=== PATIENT | female | born 1980 | race Caucasian/White ===

== ENCOUNTER 2017-07-28 00:56 | Emergency (ER) | payer SELFPAY ==
[~2017-07-28] VITALS: Ht 165.1 cm; Wt 65.0 kg
[2017-07-28 00:58] VITALS: BP 120/72; PULSE 67; RESP 18; TEMP 98.9; O2SAT 100
[2017-07-28 01:42] VITALS: PULSE 61; RESP 16; O2SAT 100
[2017-07-28] MEDS ORDERED: ZOLO25TA PO (01:42)
[2017-07-28] MEDS ORDERED: LORazepam 1 MG TAB PO ONE (02:15)
--- NOTE | 2017-07-28 03:42 | PD ---
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 She was started Zoloft for the same did not work. She was at another hospital with a worked her up for cardiac EKGs [facility] Past Medical History Anxiety: Yes Diminished Hearing: No Tetanus Vaccination: > 5 Years Influenza Vaccination: No ?: Unknown : 4 Para: 3 Miscarriage: 1 Past Surgical History Surgical History: No Previous Surgery Social History Alcohol Use: No Tobacco Use: Yes Substance Use: No Allergies-Medications (Allergen,Severity, Reaction): Coded Allergies: No Known Allergies (Verified Adverse Reaction, Unknown, 07/28/17) Reported Meds & Prescriptions Reported Meds & Active Scripts Active Ativan (Lorazepam) 0.5 Mg Tab 0.5 Mg PO HS PRN Reported Zoloft (Sertraline HCl) 25 Mg Tab 25 Mg PO DAILY Review of Systems Except as stated in HPI: all other systems reviewed are Neg Psychiatric: Positive: Anxiety Physical Exam Narrative GENERAL: non toxic in no distress vitals all normal not tachy SKIN: Warm and dry. HEAD: Atraumatic. Normocephalic. EYES: Pupils equal and round. No scleral icterus. No injection or drainage. ENT: No nasal bleeding or discharge. Mucous membranes pink and moist. NECK: Trachea midline. No JVD. CARDIOVASCULAR: Regular rate and rhythm. RESPIRATORY: No accessory muscle use. Clear to auscultation. Breath sounds equal bilaterally. GASTROINTESTINAL: Abdomen soft, non-tender, nondistended. Hepatic and splenic margins not palpable. MUSCULOSKELETAL: Extremities without clubbing, cyanosis, or edema. No obvious deformities. NEUROLOGICAL: Awake and alert. No obvious cranial nerve deficits. Motor grossly within normal limits. Five out of 5 muscle strength in the arms and legs. Normal speech. PSYCHIATRIC: Appropriate mood and affect; insight and judgment normal. Data Data Last Documented VS Vital Signs Date Time Temp Pulse Resp B/P (MAP) Pulse Ox O2 Delivery O2 Flow Rate FiO2 07/28/17 05:05 64 18 114/64 (81) 99 Room Air 07/28/17 00:58 98.9 Orders Orders Lorazepam (Ativan) (07/28/17 02:15) Ed Discharge Order (07/28/17 04:42) Electrocardiogram (07/28/17 02:28) [facility] Medical Decision Making Medical Screen Exam Complete: Yes Emergency Medical Condition: Yes Interpretation(s) EKG is normal sinus rhythm at a rate of 51 bpm Differential Diagnosis anxiety vs SVT PSVT afib, multiple PACs vs Pneumothorax Narrative Course Patient is given Ativan she feels much better orthostatics are normal EKG is normal she has no signs of tachycardia seems like it is subjective anxiety. Diagnosis Primary Impression: Anxiety Patient Instructions: Anxiety (ED), General Instructions Scripts Lorazepam (Ativan) 0.5 Mg Tab 0.5 MG PO HS Y for ANXIETY AND/OR AGITATION, #15 TAB 0 Refills Prov: Avery Ngo MD 07/28/17 Disposition: 01 DISCHARGE HOME Condition: Good Avery Ngo MD Jul 28, 2017 03:42
[2017-07-28] MEDS ORDERED: LORA-392 PO (04:44)
[2017-07-28 04:49] VITALS: BP_SYST 112; BP_SYST 114; BP_DIAS 58; BP_DIAS 66; RESP 16
[2017-07-28 05:05] VITALS: BP 114/64; PULSE 64; RESP 18; O2SAT 99
--- NOTE | 2017-07-28 10:41 | EKG ---
Date Performed: 07/28/2017 Time Performed: 02:28:56 PTAGE: 37 years EKG: SINUS BRADYCARDIA BORDERLINE ECG NO PREVIOUS TRACING DOCTOR: Apolinar Roth Interpretating Date/Time 07/28/2017 10:39:32
== END 2017-07-28 05:05 | disposition home or self-care (01) ==
LOC: NEPE 00:56
DX: F41.0 Panic disorder [episodic paroxysmal anxiety] (principal)
CPT/HCPCS: 93005; 99283